=== PATIENT | female | born 1990 | race Caucasian/White ===

== ENCOUNTER 2021-02-17 03:03 | Emergency (ER) | payer OTHER ==
[2021-02-17] MEDS ORDERED: SODIUM CHLORIDE 0.9% 500 ML INFUS.BAG IV ONE (03:44)
[2021-02-17] MEDS ORDERED: ONDANSETRON 4 MG/2 ML VIAL IVPUSH ONE (03:44)
[2021-02-17] MEDS ORDERED: FAMOTIDINE 20 MG/50 ML IVPB 20 MG/50 ML MG IVPB ONE (03:49)
[2021-02-17 03:50] VITALS: BP 122/70; PULSE 52; TEMP 97.7; BMI 32.5
[2021-02-17] MEDS ORDERED: ONDANSETRON *ODT* 4 MG TABLET SL ONE (05:02)
[2021-02-17] MEDS ORDERED: ONDANSETRON *ODT* 4 MG TABLET ONE (05:05)
== END 2021-02-17 05:32 | disposition home or self-care (01) ==
LOC: JER 03:03
PROC: 3E033GC Introduction of Other Therapeutic Substance into Peripheral Vein, Percutaneous Approach (ICD-10-PCS; principal; 2021-02-17)
PROC: 3E033GC Introduction of Other Therapeutic Substance into Peripheral Vein, Percutaneous Approach (ICD-10-PCS; 2021-02-17)
DX: R11.2 Nausea with vomiting, unspecified (principal)
CPT/HCPCS: 99284-25; Q0162